=== PATIENT | female | born 1955 | race Caucasian/White ===

== ENCOUNTER 2017-05-16 09:23 | Day surgery (SDC) | payer OTHER ==
[~2017-05-16] VITALS: Ht 177.8 cm; Wt 93.3 kg
[~2017-05-16 09:23] MED LIST: BONIVA PO; NEXIUM 40MG40 MG PO; PREDNISONE20 MG PO; REBIF44 MCG/0.5 SC; ZOCOR 40MG40 MG PO; acid reflux; cholesterol
[2017-05-16] MEDS ORDERED: BONIVA150 MG PO (10:19)
[2017-05-16] MEDS ORDERED: LIPITOR 40MG TA40 MG PO (10:20)
[2017-05-16] MEDS ORDERED: PRIL40 PO (10:21)
[2017-05-16] MEDS ORDERED: CITRACAL + D CA1 TAB PO (10:23)
[2017-05-16] MEDS ORDERED: MULTI VITAMINS1 TAB PO (10:23)
[2017-05-16] MEDS ORDERED: MIDRIN 325 MG-11 CAP PO (10:26)
[2017-05-16] MEDS ORDERED: EXCEDRIN1 TAB PO (10:26)
[2017-05-16] MEDS ORDERED: BETASERON0.3 M2 INJ (10:27)
[2017-05-16 10:32] VITALS: BP 144/98; PULSE 83; TEMP 98
[2017-05-16 11:40] VITALS: BP 128/84; PULSE 85; TEMP 97.6
[2017-05-16 11:45] VITALS: BP 126/79; PULSE 77
[2017-05-16 12:00] VITALS: BP 131/82; PULSE 79
== END 2017-05-16 12:20 | disposition home or self-care (01) ==
LOC: SDCO 09:23
DX: Z12.11 Encounter for screening for malignant neoplasm of colon (principal); K21.0 Gastro-esophageal reflux disease with esophagitis
CPT/HCPCS: OP; J2250; J2405; J3010; J7030

== ENCOUNTER → 2017-07-03 | Outpatient (CLI) | payer OTHER ==
[~2017-07-03] MED LIST changes: +BETASERON0.3 M2 INJ; +BONIVA150 MG PO; +CITRACAL + D CA1 TAB PO; +EXCEDRIN1 TAB PO; +LIPITOR 40MG TA40 MG PO; +MIDRIN 325 MG-11 CAP PO; +MULTI VITAMINS1 TAB PO; +PRIL40 PO
== END ==
LOC: MC.RAD 13:25
DX: Z12.31 Encounter for screening mammogram for malignant neoplasm of breast (principal)

== ENCOUNTER → 2018-07-06 | Outpatient (CLI) | payer OTHER | LOC: MC.RAD 13:57 | DX: Z12.31 Encounter for screening mammogram for malignant neoplasm of breast (principal) ==

== ENCOUNTER → 2019-03-11 | Outpatient (CLI) | payer OTHER | LOC: COL.RAD 14:05 | DX: M79.89 Other specified soft tissue disorders (principal); K80.20 Calculus of gallbladder without cholecystitis without obstruction; G89.18 Other acute postprocedural pain; Z90.49 Acquired absence of other specified parts of digestive tract | CPT/HCPCS: Q9967 ==

== ENCOUNTER → 2019-07-20 | Outpatient (CLI) | payer OTHER | LOC: MC.RAD 07:24 | DX: Z12.31 Encounter for screening mammogram for malignant neoplasm of breast (principal); N64.89 Other specified disorders of breast; Z98.82 Breast implant status ==

== ENCOUNTER → 2020-06-21 | Outpatient (CLI) | payer BC | LOC: MC.RAD 12:57 | DX: Z12.31 Encounter for screening mammogram for malignant neoplasm of breast (principal) ==

== ENCOUNTER → 2021-07-05 | Outpatient (CLI) | payer BC | LOC: MC.RAD 07:58 | DX: Z12.31 Encounter for screening mammogram for malignant neoplasm of breast (principal); Z98.82 Breast implant status ==

== ENCOUNTER → 2022-04-10 | Outpatient (CLI) | payer MEDICARE, OTHER ==
[2022-04-10 10:38] LABS: BASO % 0.5 % (0.0-2.0); EOS # 0.1 K/mm3 (0.0-0.7); EOS % 0.9 % (0.0-4.0); GRAN # 5.1 K/mm3 (1.4-6.5); GRAN % 57.5 % (42.2-75.2); HEMATOCRIT 40.2 % (37.0-47.0); MEAN CELL VOLUME 90 fl (80.0-100.0); MEAN CORPUSCULAR HEMOGLOBIN 29 pg (27-31); MEAN CORPUSCULAR HGB CONC 32 g/dl (33.0-37.0); MEAN PLATELET VOLUME 10.2 fl (7.4-10.4); MONO # 0.6 K/mm3 (0.1-0.6); MONO % 6.9 % (1.7-9.3); PLATELET COUNT 318 K/mm3 (130-400); RED BLOOD COUNT 4.49 M/mm3 (4.10-5.30); REDCELL DISTRIBUTION WIDTH-CV 13.8 % (11.5-14.5)
[2022-04-10 11:02] LABS: BILIRUBIN,TOTAL 0.7 mg/dL (0.2-1.2); CALCIUM 9.6 mg/dL (8.4-10.2); CREATININE, serum 0.81 mg/dL (0.57-1.11); POTASSIUM 4.4 mmol/L (3.5-4.5); TOTAL PROTEIN 8.1 gm/dL (6.2-8.1)
[2022-04-10 11:23] LABS: THYROID STIMULATING HORMONE 1.806 uIU/mL (0.350-4.940)
== END ==
LOC: COL.LAB 10:11
PROVIDERS: Family Medicine
DX: E78.00 Pure hypercholesterolemia, unspecified (principal); I10 Essential (primary) hypertension; E11.69 Type 2 diabetes mellitus with other specified complication; Z11.59 Encounter for screening for other viral diseases

== ENCOUNTER → 2023-07-09 | Outpatient (CLI) | payer MEDICARE, OTHER | LOC: CANSCHCLI → MC.RAD 09:48 | DX: Z12.31 Encounter for screening mammogram for malignant neoplasm of breast (principal) ==

== ENCOUNTER 2023-08-25 15:24 | Emergency (ER) | payer MEDICARE, OTHER ==
[~2023-08-25] VITALS: Ht 177.8 cm; Wt 80.0 kg
[2023-08-25] MEDS ORDERED: LR 1,000 ML IV ONE (16:00)
[2023-08-25] MEDS ORDERED: Ondansetron 4 MG/2 ML VIAL IV ONE (16:00)
[2023-08-25] MEDS ORDERED: Morphine 4 MG/ML VIAL IV ONE (16:00)
[2023-08-25 16:40] LABS: COLLECTION METHOD CLEAN CATCH
[2023-08-25 17:04] LABS: URINE COLOR Yellow (YELLOW)
[2023-08-25 17:05] LABS: URINE APPEARANCE Clear (CLEAR/HAZY); URINE BLOOD Negative (NEGATIVE); URINE GLUCOSE Negative (NEGATIVE); URINE KETONE Negative (NEGATIVE); URINE NITRATE Negative (NEGATIVE); URINE PROTEIN(semi-quant) Negative (NEGATIVE); URINE UROBILINOGEN 0.2 E.U/dL (0.2-1.0)
[2023-08-25 17:06] LABS: URINE BACTERIA Occasional /hpf (NONE SEEN)
[2023-08-25 17:07] LABS: MUCOUS Present (NOT PRESENT); URINE RBC None Seen /hpf (0-2)
[2023-08-25 17:10] LABS: BASO % 0.3 % (0.0-2.0); EOS # 0.1 K/mm3 (0.0-0.7); EOS % 0.5 % (0.0-4.0); GRAN # 6.6 K/mm3 (1.4-6.5); HEMATOCRIT 39.8 % (37.0-47.0); HEMOGLOBIN 13.3 g/dl (12.5-16.0); LYMPH # 2.4 K/mm3 (1.2-3.4); LYMPH % 24.4 % (20.0-51.0); MEAN CELL VOLUME 90 fl (80.0-100.0); MEAN CORPUSCULAR HEMOGLOBIN 30 pg (27-31); MEAN CORPUSCULAR HGB CONC 33 g/dl (33.0-37.0); MEAN PLATELET VOLUME 10.4 fl (7.4-10.4); MONO # 0.7 K/mm3 (0.1-0.6); MONO % 7.5 % (1.7-9.3); PLATELET COUNT 295 K/mm3 (130-400); RED BLOOD COUNT 4.42 M/mm3 (4.10-5.30); REDCELL DISTRIBUTION WIDTH-CV 12.8 % (11.5-14.5)
[2023-08-25 17:37] LABS: ALBUMIN 3.6 gm/dL (3.4-4.8); BILIRUBIN,TOTAL 0.4 mg/dL (0.2-1.2); C-REACTIVE PROTEIN 1.53 mg/dL (0.00-0.50); CALCIUM 9.6 mg/dL (8.4-10.2); CREATININE, serum 0.86 mg/dL (0.57-1.11); POTASSIUM 3.5 mmol/L (3.5-4.5); TOTAL PROTEIN 7.2 gm/dL (6.2-8.1)
[2023-08-25] MEDS ORDERED: Iohexol 300 - 100 ML VIAL IV ONE (18:20)
[2023-08-25] MEDS ORDERED: NS 60 ML IV ONE (18:21)
[2023-08-25] MEDS ORDERED: PROTONIX 40MG T40 MG PO (19:14)
[2023-08-25] MEDS ORDERED: PERCOCET 325 MG1 TA2 PO (19:14)
[2023-08-25 19:20] VITALS: BP 145/97; PULSE 88; TEMP 98.3
[2023-08-27] MEDS ORDERED: CEPHALEXIN500 M1 PO (13:31)
== END 2023-08-25 19:24 | disposition home or self-care (01) ==
LOC: COL.ER 15:24
PROVIDERS: Family Medicine
DX: K29.70 Gastritis, unspecified, without bleeding (principal); R82.71 Bacteriuria; K80.20 Calculus of gallbladder without cholecystitis without obstruction
CPT/HCPCS: J2270; J2405; J7120; Q9967